=== PATIENT | male | born 1960 | race African-American/Black ===

== ENCOUNTER 2020-06-07 13:48 | Emergency (ER) | payer SELFPAY ==
[~2020-06-07] VITALS: Ht 182.9 cm; Wt 73.0 kg
[2020-06-07 13:58] VITALS: BP 171/100
[2020-06-07] MEDS ORDERED: KETOROLAC 60MG/2ML VIAL IM ONE (15:00)
== END 2020-06-07 15:30 | disposition home or self-care (01) ==
LOC: ER 14:00
DX: M19.011 Primary osteoarthritis, right shoulder (principal); F17.210 Nicotine dependence, cigarettes, uncomplicated; Z90.49 Acquired absence of other specified parts of digestive tract; Z88.0 Allergy status to penicillin; Z88.2 Allergy status to sulfonamides
CPT/HCPCS: 96372; 99283; J1885